=== PATIENT | female | born 2000 | race African-American/Black ===

== ENCOUNTER 2020-08-10 11:56 | Emergency (ER) | payer OTHER ==
[2020-08-10 12:12] VITALS: TEMP 98.4; BMI 19.3
[2020-08-10] MEDS ORDERED: SODIUM CHLORIDE 1,000 ML IV STA (12:53)
--- NOTE | 2020-08-10 13:24 | PDOC ---
History of Present Illness - General Chief Complaint: Headache Stated Complaint: Allergic Reaction Time Seen by Provider: 08/10/20 12:43 History Source: Patient, Primary Care Provider Exam Limitations: Clinical Condition - History of Present Illness Initial Comments: 08/10/20 13:19 Patient with no significant past medical history present with complaint of one- week history of aching body ache and spasm and heaviness in the head status post presenting to [facility] a week ago with headache and given IV Reglan. Patient report has not been getting more headaches but feels heaviness in the head and spasm throughout her body. Patient report blood work and head CT was done [facility] a week ago when she went in for headache with normal results. Denies blurry vision, change in vision, nausea, vomiting, dizziness, chest pain, shortness of breath, fever, chills. Denies any other symptoms. Patient has not taken anything for symptoms Timing/Duration: reports: 1 week Severity: Yes: mild Associated Symptoms: reports: fatigue, muscle spasms. denies: confusion, fever/chills, loss of consciousness, nausea/vomiting, ringing in ears, slurred speech, tingling in legs/feet, trouble walking, vision changes, weakness Past History - Medical History Allergies/Adverse Reactions: Allergies Allergy/AdvReac Type Severity Reaction Status Date / Time metoclopramide [From Reglan] AdvReac Verified 08/10/20 12:12 Home Medications: Ambulatory Orders Methylprednisolone [Medrol Dose Damion] 4 mg PO ASDIR #21 tablet 08/10/20 COPD: No Other medical history: DENIES - Reproductive History Is Patient Now?: No - Psycho-Social/Smoking History Smoking History: Never smoked Have you smoked in the past 12 months: No Information on smoking cessation initiated: No - Substance Abuse Hx (Audit-C & DAST Scrn) How often the patient has a drink containing alcohol: Never Score: In Men: 4 or > Positive; In Women: 3 or > Positive: 0 Screen Result (Pos requires Nsg. Audit-10AR): Negative In the last yr the pt used illegal drug/Rx for NonMed reason: No Score: Yes response is considered Positive: 0 Screen Result (Positive result requires Nsg. DAST-10): Negative Neuro Specific PMHX - Complaint Specific PMHX Glaucoma: No Herniated Disk: No Laminectomy: No Migraine: No Multiple Sclerosis: No Neuropathy: No TIA: No Review of Systems - Review of Systems Able to Perform ROS?: Yes Is the patient limited Iranian proficient: No Constitutional: No: Chills, Fever, Malaise HEENTM: No: Symptoms Reported, See HPI, Eye Pain, Blurred Vision, Tearing, Recent change in vision, Double Vision, Cataracts, Ear Pain, Ocular Prothesis, Ear Discharge, Nose Pain, Nose Congestion, Tinnitus, Nose Bleeding, Hearing Loss, Throat Pain, Throat Swelling, Mouth Pain, Dental Problems, Difficulty Swallowing, Mouth Swelling, Other Respiratory: No: Symptoms reported, See HPI, Cough, Orthopnea, Shortness of Breath, SOB with Exertion, SOB at Rest, Stridor, Wheezing, Productive cough, Hemoptysis, Other Cardiac (ROS): No: Symptoms Reported, See HPI, Chest Pain, Edema, Irregular Heart Rate, Lightheadedness, Palpitations, Syncope, Chest Tightness, Other ABD/GI: No: Symptoms Reported, Nausea, Vomiting Musculoskeletal: Yes: Symptoms Reported, See HPI, Muscle Pain, Joint Stiffness Integumentary: No: Symptoms Reported, See HPI Neurological: Yes: Symptoms reported, See HPI. No: Headache (heaviness in the head), Numbness, Paresthesia, Weakness, Dizziness All Other Systems: Reviewed and Negative *Physical Exam - Vital Signs Last Vital Signs Temp Pulse Resp BP Pulse Ox 98.4 F 82 17 108/74 99 08/10/20 12:08 08/10/20 12:08 08/10/20 12:08 08/10/20 12:08 08/10/20 12:08 - Physical Exam 08/10/20 13:25 GENERAL: Well developed, well nourished. Awake and alert. No acute distress. HEENT: Normocephalic, atraumatic. PERRLA, EOMI. No conjunctival pallor. Sclera are non- icteric. Moist mucous membranes. Oropharynx is clear. NECK: Supple. Full ROM. No JVD. No thyromegaly. No lymphadenopathy. CARDIOVASCULAR: Regular rate and rhythm. No murmurs, rubs, or gallops. Distal pulses are 2+ and symmetric. PULMONARY: No evidence of respiratory distress. Lungs clear to auscultation bilaterally. No wheezing, rales or rhonchi. MUSCULOSKELETAL Normal range of motion at all joints. No bony deformities or tenderness. No CVA tenderness. SKIN: Warm and dry. Normal capillary refill. No rashes. No jaundice. No cyanosis NEUROLOGICAL: Alert, awake, appropriate. Cranial nerves 2-12 intact. No deficits to light touch in face, upper extremities and lower extremities. No motor deficits in the in face, upper extremities and lower extremities. Normoreflexic in the upper and lower extremities. Normal speech. Gait is normal without ataxia. PSYCHIATRIC: Cooperative. Good eye contact. Appropriate mood and affect. General Appearance: Yes: Nourished, Appropriately Dressed. No: Apparent Distress ED Treatment Course - LABORATORY CBC & Chemistry Diagram: 08/10/20 13:06 08/10/20 13:06 Medical Decision Making - Medical Decision Making 08/10/20 13:23 Patient with no significant past medical history present with complaint of one- week history of aching body ache and spasm and heaviness in the head status post presenting to [facility] a week ago with headache and given IV Reglan. Patient report has not been getting more headaches but feels heaviness in the head and spasm throughout her body. Patient report blood work and head CT was done [facility] a week ago when she went in for headache with normal results. Denies blurry vision, change in vision, nausea, vomiting, dizziness, chest pain, shortness of breath, fever, chills. Denies any other sy mptoms. Patient has not taken anything for symptoms Clinical exam unremarkable except bilateral maxillary sinus mild tenderness. Normal neuro exam. Normal cardio lung exam. Patient no acute distress and walking with normal gait. Negative arm drop test. Pupil equal reflective to light bilateral. Symptoms likely heaviness in the head caused by sinus congestion with myalgia from fatigue versus less likely side effect from Reglan given is been over a week. will do electrolyte blood work to rule out electrolyte abnormality. CBC and chemistry lab order. IV hydration with 1 L normal saline ordered. Reassess after labs 08/10/20 14:10 CBC and chemistry lab unremarkable. Upon talking to patient, it was disclosed patient had already follow-up with neurology and PCP for the symptoms and was advised to take Benadryl as needed as nothing was found few days ago. Patient asymptomatic at this time and will be discharged home on Medrol pack for inflammatory effect with follow-up back with neurology. Discharge - Discharge Information Problems reviewed: Yes Clinical Impression/Diagnosis: Myalgia, Sinus headache Condition: Stable Disposition: HOME - Admission No - Additional Discharge Information Prescriptions: Methylprednisolone [Medrol Dose Damion] 4 mg PO ASDIR #21 tablet - Follow up/Referral Referrals: Vashti Story MD [Primary Care Provider] - - Patient Discharge Instructions Additional Instructions: Your blood work is normal. Your urine electrolytes is normal. Your headache is likely caused by sinus congestion. Take prescribed medication as prescribed for sinus headache. Follow-up with your neurologist and primary care - Post Discharge Activity
[2020-08-10 13:38] LABS: BASO % 0.9 % (0-2.0); EOS % 2.6 % (0-4.5); HEMATOCRIT 39.1 % (32.4-45.2); LYMPH % 47.9 % (8-40); MCH 29.6 pg (25.7-33.7); MCHC 33.2 g/dl (32.0-36.0); MEAN CELL VOLUME 89.1 fl (80-96); MEAN PLT VOLUME 8.7 fl (7.5-11.1); MONO % 9.4 % (3.8-10.2); NEUT % 39.2 % (42.8-82.8); PLATELET COUNT 222 K/MM3 (134-434); RBC 4.39 M/mm3 (3.60-5.2); RDW 12.3 % (11.6-15.6); WHITE BLOOD COUNT 4.1 K/mm3 (4.0-10.0)
[2020-08-10 13:58] LABS: ALBUMIN 4.2 g/dl (3.4-5.0); CALCIUM 9.1 mg/dL (8.5-10.1); POTASSIUM 4.1 mmol/L (3.5-5.1); TOT PROT 7.6 g/dl (6.4-8.2)
[2020-08-10 14:01] LABS: BILIRUBIN,TOTAL 0.9 mg/dL (0.2-1); BLOOD UREA NITROGEN 8.4 mg/dL (7-18); CREATININE 0.8 mg/dL (0.55-1.3)
[2020-08-10 14:26] VITALS: BP 114/72; PULSE 79
== END 2020-08-10 14:26 | disposition home or self-care (01) ==
LOC: JER 11:56
PROC: 3E0337Z Introduction of Electrolytic and Water Balance Substance into Peripheral Vein, Percutaneous Approach (ICD-10-PCS; principal; 2020-08-10)
DX: M79.10 Myalgia, unspecified site (principal); J32.9 Chronic sinusitis, unspecified
CPT/HCPCS: 36415; 80051; 80053; 82436; 84133; 84300; 84703; 85025; 87077; 87086; 99284-25